=== PATIENT | female | born 1945 | race Caucasian/White ===

== ENCOUNTER 2018-04-24 10:36 | Outpatient (CLI) | payer MEDICARE, BC | END 2018-04-24 10:37 | disposition home or self-care (01) | LOC: BICMAMMO 10:36 | PROVIDERS: ATTEND Family Medicine | DX: Z12.31 Encounter for screening mammogram for malignant neoplasm of breast (principal); Z80.3 Family history of malignant neoplasm of breast | CPT/HCPCS: 77063; 77067 ==

== ENCOUNTER 2018-08-27 09:50 | Outpatient (CLI) | payer MEDICARE, OTHER ==
--- NOTE | 2018-08-27 11:45 | ULT ---
LIMITED RIGHT BREAST ULTRASOUND: 08/27/2018 PROVIDED CLINICAL HISTORY: Right breast palpable abnormality. FINDINGS: Limited sonographic interrogation of the right breast was performed in the region of palpable concern . There is a somewhat circumscribed area of altered echogenicity at the 10 o'clock position of the r ight breast, in the region of palpable concern. There is associated posterior shadowing. This proce ss measures approximately 3.4 x 1.8 cm. IMPRESSION: BI-RADS category 4-Suspicious abnormality. Ultrasound-guided breast biopsy is recommended. Results and recommendations discussed with the patient and questions answered. POS: OFF
== END 2018-08-27 09:51 | disposition home or self-care (01) ==
LOC: BICMAMMO 09:50
PROVIDERS: ATTEND Family Medicine
DX: N63.10 Unspecified lump in the right breast, unspecified quadrant (principal); Z80.3 Family history of malignant neoplasm of breast
CPT/HCPCS: 76642; 77065; G0279

== ENCOUNTER → 2018-09-05 | Day surgery (SDC) | payer MEDICARE, OTHER ==
--- NOTE | 2018-09-05 13:55 | ULT ---
ULTRASOUND GUIDED RIGHT BREAST BIOPSY: DATE: 09/05/2018. PROVIDED CLINICAL HISTORY: Mass. FINDINGS: Informed consent was obtained from the patient. The patient was placed on the sonography table in th e supine position and the previously described right breast mass was localized. The soft tissues ove rlying this region were prepped and draped in the usual sterile manner. Subsequently, the skin and s ubcutaneous tissues were infiltrated with 1% buffered Lidocaine. Continuous sonographic guidance was utilized to obtain 5 core samples of the mass. Sonographic guidance was utilized to deploy biopsy s ite marker within the mass. [place] were withdrawn. Hemostasis achieved. No immediate complication s. Post biopsy mammograms demonstrate appropriate clip deployment. IMPRESSION: Technically successful ultrasound-guided right breast biopsy. Please correlate with histology result s to follow. POS: OFF
== END ==
LOC: BICULT 12:45
PROVIDERS: ATTEND Family Medicine
PROC: 0HBT3ZX Excision of Right Breast, Percutaneous Approach, Diagnostic (ICD-10-PCS; principal; 2018-09-05)
DX: C50.411 Malignant neoplasm of upper-outer quadrant of right female breast (principal); Z17.0 Estrogen receptor positive status [ER+]
CPT/HCPCS: 19083; 88305; 88341; 88342; 88361

== ENCOUNTER 2018-09-12 14:50 | Outpatient (CLI) | payer MEDICARE, OTHER ==
--- NOTE | 2018-09-11 22:03 | HP ---
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 The patient on self-breast examination appreciated an outer right breast mass. Her family history is significant that her sister had breast cancer at approximately age 59. Otherwise, there is nobody else in her family with breast cancer. She is 2, para 2 with first at 20 years of age. She on 08/27/2018, had a mammogram that was nondiagnostic, did not reveal any abnormalities, but ultrasound on that day revealed a 3.4 x 1.8 cm right breast mass and on 09/05/2018, she underwent ultrasound-guided biopsy revealing the ER positive 98%, NV negative, Ki67 low, HER-2 negative, infiltrating lobular carcinoma. She discussed she was referred by Dr. Uday Ogden to see Dr. Craft. The patient desires breast preservation. Plan is for lymphoscintigraphy partial mastectomy as an outpatient. She will follow up with Dr. Craft, Dr. Goldberg, and myself as an outpatient. She understands risks of infection, bleeding, reoperation, and consents. Needle localization is not necessary as the lesion is palpable in the outer right breast. SOCIAL HISTORY: Tobacco, none since 1984. Alcohol, none. PAST SURGICAL HISTORY: Blepharoplasty, cataract. She is up to date on colonoscopies. PAST MEDICAL HISTORY: Arthritis, cholesterol, hypertension. MEDICATIONS: 1. Losartan. 2. Aspirin. 3. B12. REVIEW OF SYSTEMS: Ten-point noncontributory. FAMILY HISTORY: Otherwise noncontributory. PHYSICAL EXAMINATION: VITAL SIGNS: Blood pressure 134/71, pulse 67, temperature 96 degrees, weight 130 pounds. HEAD, EARS, EYES, NOSE, AND THROAT: Unremarkable. LUNGS: Clear to auscultation. CARDIAC: Regular rate and rhythm without murmur or gallop. ABDOMEN: Soft and nontender. BREASTS: Axilla without palpable lymphadenopathy. Left breast nipple-areolar normal, right nipple-areolar normal. Right breast reveals a 3 cm mobile mass, outer, slightly upper right breast. There are no skin changes. There was a puncture site consistent with a recent ultrasound-guided biopsy. EXTREMITIES: Unremarkable. No ankle edema. No lymphadenopathy. NEUROLOGIC: Neurologically intact. No deficit. ASSESSMENT AND PLAN: Right breast cancer outer, slightly upper 3.4 x 1.8 cm by ultrasound measurements with a negative mammogram. The self breast examination discovered ER positive 98%, NV negative, Ki67 low 8.5%, HER-2 negative, seen by Dr. Craft. Follow Dr. Ogden. PLAN: Treatment as above. She desires breast preservation. She understands risks of infection, bleeding, reoperation, wound problems, and consents. Job ID: [id number]
--- NOTE | 2018-09-12 15:26 | BD ---
DEXA BONE DENSITY EXAM: HISTORY: A 73-year-old postmenopausal female for screening. FINDINGS: Lumbar Spine: BMD (g/cm2) L1 1.016 T-Score: 0.2 L2 1.125 T-Score: 0.9 L3 1.243 T-Score: 1.4 L4 1.083 T-Score: 0.2 L1-L4 1.118 T-Score: 0.6 Femoral Neck: 0.678 T-Score: -1.5 Total Femur: 0.842 T-Score: -0.8 Impression: Osteopenia. This patient has a 10-year WHO fracture risk of a major osteoporotic fracture of 23% and of a hip fracture of 12%. POS: [facility]
== END 2018-09-12 14:51 | disposition home or self-care (01) ==
LOC: BICMAMMO 14:50
PROVIDERS: ATTEND Internal Medicine
DX: Z13.820 Encounter for screening for osteoporosis (principal); M85.859 Other specified disorders of bone density and structure, unspecified thigh; Z79.890 Hormone replacement therapy
CPT/HCPCS: 77080

== ENCOUNTER 2018-09-15 10:30 | Outpatient (CLI) | payer MEDICARE, OTHER ==
[2018-09-15 11:37] LABS: #Lymphocytes 0.9 thou/uL (1.20-3.40); #Monocytes 0.4 thou/uL (0.11-0.59); #Neutrophils 1.9 thou/uL (1.40-6.50); %Basophils 0.7 % (0.0-1.0); %Eosinophils 1.5 % (0.0-10.0); %Lymphocytes 27.5 % (21.0-51.0); %Monocytes 11.3 % (0.0-10.0); %Neutrophils 58.9 % (42.0-75.0); Hemoglobin 13.4 g/dL (12.0-16.0); Mean Corpuscular HGB CONC 32.5 g/dL (32.0-36.0); Mean Corpuscular Hemoglobin 32.8 pg (27.0-31.0); Platelet Count 198 thou/uL (130-400); RBC Distribution Width 11.4 % (11.5-14.5); Red Blood Cell (RBC) Count 4.08 mill/uL (4.20-5.40); White Blood Cell (WBC) Count 3.3 thou/uL (4.8-10.8)
[2018-09-15 12:01] LABS: ALT (SGPT) 12 U/L (8-55); AST (SGOT) 13 U/L (5-34); Albumin 4.5 g/dL (3.4-4.8); Alkaline Phosphatase 56 U/L (40-150); Anion Gap 11 mmol/L (10-20); BUN (Urea Nitrogen) 21 mg/dL (9.8-20.1); Bilirubin, Total 0.4 mg/dL (0.2-1.2); Calc. Creatinine Clearance 0 mL/min (70-130); Calcium 9.6 mg/dL (7.8-10.44); Carbon Dioxide 27 mmol/L (23-31); Chloride 105 mmol/L (98-107); Estimated GFR-MDRD 74; Globulin 2.6 g/dL (2.4-3.5); Glucose 97 mg/dL (83-110); Potassium 4.1 mmol/L (3.5-5.1); Protein, Total 7.1 g/dL (6.0-8.3); Sodium 139 mmol/L (136-145)
--- NOTE | 2018-09-15 13:49 | RAD ---
CHEST 2 VIEWS: HISTORY: Preop. COMPARISON: None. FINDINGS: Lungs are clear. No pneumothorax or effusion. Cardiac silhouette and mediastinal contour is within normal limits. IMPRESSION: No acute intrathoracic abnormality. POS: [facility]
== END 2018-09-15 10:31 | disposition home or self-care (01) ==
LOC: LABBT 10:30
PROVIDERS: ATTEND Specialist
DX: Z01.818 Encounter for other preprocedural examination (principal); C50.911 Malignant neoplasm of unspecified site of right female breast; Z17.0 Estrogen receptor positive status [ER+]
CPT/HCPCS: 71046; 80053; 85025; 93005; 93010

== ENCOUNTER 2018-09-17 06:57 | Day surgery (SDC) | payer MEDICARE, OTHER ==
[2018-09-15 10:49] VITALS: BMI 26.5
[2018-09-17] MEDS ORDERED: Ketorolac Tromethamine 30 MG/ML VIAL ONE (08:40)
--- NOTE | 2018-09-17 09:42 | NM ---
NUCLEAR MEDICINE LYMPHOSCINTIGRAPHY: History: Right breast cancer. FINDINGS: Examination was performed with injection of 417 mCi Technetium 99M filtered Sulfur-Colloid as four se parate injections around the nipple. The injections were performed after the patient was prepped in t he normal sterile fashion and local anesthesia obtained with 1% Xylocaine. Almost immediately an axil hernan node was identified. Patient was transferred to surgery. IMPRESSION: Successful lymphoscintigraphy. POS: [facility]
[2018-09-17] MEDS ORDERED: Fentanyl 100 MCG/2 ML VIAL ONE (11:17)
[2018-09-17] MEDS ORDERED: Lidocaine 2% PF 5 ML VIAL ONE ×2 (11:22→12:01)
[2018-09-17] MEDS ORDERED: Bupivacaine HCl 0.5%/Epinephrine 1:200,000/PF 30 ml Vial ONE (11:22)
[2018-09-17] MEDS ORDERED: Ondansetron PF 4 MG/2 ML Vial ONE (12:10)
[2018-09-17] MEDS ORDERED: Lidocaine 1% PF 5 ML VIAL ONE (12:10)
[2018-09-17] MEDS ORDERED: Dexamethasone 20 MG/5 ML VIAL ONE (12:10)
[2018-09-17] MEDS ORDERED: PROPOFOL 200 MG/20 ML VIAL ONE (12:10)
--- NOTE | 2018-09-17 14:38 | OP ---
DATE OF PROCEDURE: 09/17/2018 PREOPERATIVE DIAGNOSIS: Right breast cancer, upper outer quadrant, receptor-positive, nonpalpable nodes. POSTOPERATIVE DIAGNOSES: [place] node biopsy touch prep negative, nonpalpable lymphadenopathy. PROCEDURES PERFORMED: Partial mastectomy, upper outer right breast with sentinel node biopsy and Lymphazurin blue injection and lymphoscintigraphy, touch prep negative sentinel node, Neoprobe counts 250 sentinel node, excised bed 0 counts. ANESTHESIA: General, local 0.25% Marcaine with epinephrine 60 mL mixed with 2% Xylocaine 10 mL. DESCRIPTION OF PROCEDURE: The patient was taken to the operating room, where under general anesthesia, alcohol prep, areolar border, Lymphazurin blue injection 3 mL subdermal, areolar border, and right breast, axilla and chest wall prepared with ChloraPrep and draped in routine fashion. Incision was made in the right axilla at the lower hairline, this was carried down through skin, subcutaneous tissue, deep fascia, and sentinel node identified, colored blue, dissected free. Neoprobe counts 220. Excised using cautery, submitted to the pathologist, touch prep negative for metastasis or malignancy. Hemostasis gained with the cautery, Neoprobe counts in the excise bed 0. Subcutaneous tissue was approximated with 3-0 Monocryl, skin with subdermal 4-0 Monocryl, and local anesthetic infiltrated in the biopsy cavity for postoperative pain control and had been infiltrated in skin and subcutaneous tissue prior to the incision. Local anesthetic was infiltrated in the skin and subcutaneous tissue, and the planned remaining tissue outside the partial mastectomy, an incision made right periareolar laterally and carried down through skin and subcutaneous tissue and the tumor mass in the upper outer quadrant of right breast dissected free, creating a flap between the skin and subcutaneous tissue, and underlying breast tissue laterally superiorly and then underneath to the pectoralis muscle, dissecting this tumor mass with a partial mastectomy. Once it was completely excised, margins were marked with appropriate sutures and submitted to Pathology. Grossly, the tumor mass was palpated close to the posterior margin. Thus, the thin posterior margin of breast tissue excised from the pectoralis fascia, and serratus muscle and labeled appropriately with the suture on the new margin and submitted to Pathology. Hemostasis was gained with the cautery. Good hemostasis noted. Subcutaneous tissues were approximated with interrupted suture of 3-0 Monocryl, and skin with interrupted subdermal 4-0 Monocryl, and biopsy cavity was infiltrated with local anesthetic and Atwood-glue placed on the wounds and an Kaleb wrap. Hospital sports bra applied. The patient tolerated the procedure well. Job ID: [id number]
== END 2018-09-17 15:05 | disposition home or self-care (01) ==
LOC: SDC 06:57
PROVIDERS: ATTEND Specialist
PROC: 0HBT0ZZ Excision of Right Breast, Open Approach (ICD-10-PCS; principal; 2018-09-17)
PROC: 07B80ZX Excision of Right Internal Mammary Lymphatic, Open Approach, Diagnostic (ICD-10-PCS; 2018-09-17)
DX: C50.411 Malignant neoplasm of upper-outer quadrant of right female breast (principal); M19.90 Unspecified osteoarthritis, unspecified site; I10 Essential (primary) hypertension; Z17.0 Estrogen receptor positive status [ER+]; Z87.891 Personal history of nicotine dependence; Z79.82 Long term (current) use of aspirin; Z79.899 Other long term (current) drug therapy
CPT/HCPCS: 19301; 38525; 38900; 78195; A9541; Q9968; 88307; 88331; 88334; 88342; J0131; J0670; J1100; J1885; J2001; J2405; J2704; J3010

== ENCOUNTER 2019-06-09 09:21 | Outpatient (CLI) | payer MEDICARE, OTHER ==
--- NOTE | 2019-06-09 10:09 | MMO ---
Bilateral MAMMO Bilat Diag [facility]. CLINICAL HISTORY: Patient is 73 years old and is seen for diagnostic exam. VIEWS: The views performed were: . FILMS COMPARED: The present examination has been compared to prior imaging studies performed at [facility] on 04/24/2018 and 08/27/2018. This study has been interpreted with the assistance of computer-aided detection. MAMMOGRAM FINDINGS: Finding 1: Benign calcifications are noted bilaterally. Finding 2: There are post-operative and XRT changes in the right breast. IMPRESSION: FINDING 1: FINDINGS IN BOTH BREASTS ARE BENIGN. FINDING 2: FINDING IN THE RIGHT BREAST IS PROBABLY BENIGN. FOLLOW-UP IN 6 MONTHS IS RECOMMENDED. THE RESULTS OF THIS EXAM WERE SENT TO THE PATIENT. ACR BI-RADS Category 3 - Probably benign finding - short interval follow-up suggested. [facility] will notify the patient of the need for additional imaging services. MAMMOGRAPHY NOTE: 1. A negative mammogram report should not delay a biopsy if a dominant of clinically suspicious mass is present. 2. Approximately 10% to 15% of breast cancers are not detected by mammography. 3. Adenosis and dense breasts may obscure an underlying neoplasm. Reported by: MARSHALL PARRY MD Electonically Signed: [id number]
== END 2019-06-09 09:22 | disposition home or self-care (01) ==
LOC: BICMAMMO 09:21
PROVIDERS: ATTEND Internal Medicine Hematology & Oncology
DX: C50.919 Malignant neoplasm of unspecified site of unspecified female breast (principal)
CPT/HCPCS: 77066; G0279

== ENCOUNTER 2019-09-09 10:47 | Outpatient (CLI) | payer MEDICARE, OTHER ==
--- NOTE | 2019-09-09 12:48 | RAD ---
PA AND LATERAL CHEST: Date: 09/09/2019 COMPARISON: 09/15/18 exam. HISTORY: Bronchitis. Cough. FINDINGS: There are some patchy parenchymal lung changes of the right mid lung field, which have developed sinc e the prior examination. Left lung appears clear of any infiltrates. IMPRESSION: Some increased markings now seen in the right mid lung field suggesting some developing infiltrate, w hich on the lateral view appears to be within the anterior segment of the right upper lobe. POS: [facility]
== END 2019-09-09 10:48 | disposition home or self-care (01) ==
LOC: BICRAD 10:47
PROVIDERS: ATTEND Family Medicine
DX: J40 Bronchitis, not specified as acute or chronic (principal); J98.4 Other disorders of lung
CPT/HCPCS: 71046

== ENCOUNTER 2019-09-16 11:07 | Outpatient (CLI) | payer MEDICARE, OTHER ==
--- NOTE | 2019-09-16 12:01 | RAD ---
EXAM: Chest PA and lateral: HISTORY: Pneumonia, right lower lobe. COMPARISON: 09/09/2019 FINDINGS: Heart: Normal cardiac silhouette Aorta: Unremarkable Pulmonary vessels: Normal Costophrenic angles: Costophrenic angles are clear. Lungs: Improved aeration of the right lung. There is a persistent opacity in the left lung base. Mild hyperinflation. Pneumothorax: No pneumothorax Osseous structures: No osseous abnormalities IMPRESSION: 1. Improved aeration right lung. 2. Persistent left lower lobe opacity. Continued surveillance ensure resolution
== END 2019-09-16 11:08 | disposition home or self-care (01) ==
LOC: BICRAD 11:07
PROVIDERS: ATTEND Family Medicine
DX: J18.9 Pneumonia, unspecified organism (principal); R91.8 Other nonspecific abnormal finding of lung field
CPT/HCPCS: 71046

== ENCOUNTER 2019-11-30 09:24 | Outpatient (CLI) | payer MEDICARE, OTHER ==
--- NOTE | 2019-11-30 09:44 | MMO ---
Right Breast MAMMO Unilat Diag [facility]DI RT+CHRISTIAN. CLINICAL HISTORY: Patient is 74 years old and is seen for follow-up at short-interval from prior study. The patient has the following family history of breast cancer: sister. The patient has a history of malignant (generic) in the right breast in August,. The patient has a history of right Lumpectomy in August, - malignant. VIEWS: The views performed were: right craniocaudal with tomosynthesis; right mediolateral oblique with tomosynthesis; and right mediolateral with tomosynthesis. FILMS COMPARED: The present examination has been compared to prior imaging studies performed at [facility] on 04/24/2018, 08/27/2018 and 06/09/2019. This study has been interpreted with the assistance of computer-aided detection. MAMMOGRAM FINDINGS: The breast is extremely dense, which may lower the sensitivity of mammography. There is an area of skin thickening and a post operative change seen in the right breast. There are no suspicious masses, suspicious calcifications, or new areas of architectural distortion. IMPRESSION: THERE IS NO MAMMOGRAPHIC EVIDENCE OF MALIGNANCY. A ROUTINE FOLLOW-UP MAMMOGRAM IN 6 MONTHS IS RECOMMENDED. THE RESULTS OF THIS EXAM WERE SENT TO THE PATIENT. ACR BI-RADS Category 2 - Benign finding MAMMOGRAPHY NOTE: 1. A negative mammogram report should not delay a biopsy if a dominant of clinically suspicious mass is present. 2. Approximately 10% to 15% of breast cancers are not detected by mammography. 3. Adenosis and dense breasts may obscure an underlying neoplasm. Reported by: JOHN MCINTOSH MD Electonically Signed: [id number]
== END 2019-11-30 09:25 | disposition home or self-care (01) ==
LOC: BICMAMMO 09:24
PROVIDERS: ATTEND Internal Medicine Hematology & Oncology
DX: R92.8 Other abnormal and inconclusive findings on diagnostic imaging of breast (principal); C50.411 Malignant neoplasm of upper-outer quadrant of right female breast
CPT/HCPCS: 77065; G0279

== ENCOUNTER 2020-06-10 09:16 | Outpatient (CLI) | payer MEDICARE, OTHER ==
--- NOTE | 2020-06-10 09:49 | MMO ---
Bilateral MAMMO Bilat Diag [facility]. CLINICAL HISTORY: Patient is 74 years old and is seen for diagnostic exam. The patient has the following family history of breast cancer: sister. The patient has a history of malignant (generic) in the right breast in August,. The patient has a history of right Lumpectomy in August, - malignant. VIEWS: The views performed were: bilateral craniocaudal with tomosynthesis; bilateral mediolateral oblique with tomosynthesis; and bilateral mediolateral with tomosynthesis. FILMS COMPARED: The present examination has been compared to prior imaging studies performed at [facility] on 04/24/2018, 08/27/2018, 06/09/2019 and 11/30/2019. This study has been interpreted with the assistance of computer-aided detection. MAMMOGRAM FINDINGS: The breasts are extremely dense, which may lower the sensitivity of mammography. There are benign appearing calcifications seen in both breasts. Post op changes right breast. There are no suspicious masses, suspicious calcifications, or new areas of architectural distortion. IMPRESSION: THERE IS NO MAMMOGRAPHIC EVIDENCE OF MALIGNANCY. A ROUTINE FOLLOW-UP MAMMOGRAM IN 1 YEAR IS RECOMMENDED. THE RESULTS OF THIS EXAM WERE SENT TO THE PATIENT. ACR BI-RADS Category 2 - Benign finding MAMMOGRAPHY NOTE: 1. A negative mammogram report should not delay a biopsy if a dominant of clinically suspicious mass is present. 2. Approximately 10% to 15% of breast cancers are not detected by mammography. 3. Adenosis and dense breasts may obscure an underlying neoplasm. Reported by: FABY HOLBROOK MD Electonically Signed: [id number]
== END 2020-06-10 09:17 | disposition home or self-care (01) ==
LOC: BICMAMMO 09:16
PROVIDERS: ATTEND Internal Medicine Hematology & Oncology
DX: C50.411 Malignant neoplasm of upper-outer quadrant of right female breast (principal)
CPT/HCPCS: 77066; G0279

== ENCOUNTER 2020-07-18 09:48 | Outpatient (CLI) | payer MEDICARE, OTHER ==
--- NOTE | 2020-07-18 10:26 | BD ---
DEXA BONE DENSITY STUDY: Date: 07/18/2020 HISTORY: Osteoporosis screening. COMPARISON: Bone mineral density exam from 2019. FINDINGS: Lumbar Spine: BMD (g/cm2) L1 1.092 T-Score: 0.9 Z-Score: 3.1 L2 1.250 T-Score: 2.0 Z-Score: 4.4 L3 1.322 T-Score: 2.2 Z-Score: 4.7 L4 1.167 T-Score: 1.0 Z-Score: 3.6 L1-L4 1.204 T-Score: 1.4 Z-Score: 3.9 Change from comparison is +7.7%, statistically significant. Left Femoral Neck: 0.700 T-Score: -1.3 Z-Score: 0.8 Total Left Hip: 0.883 T-Score: -0.5 Z-Score: 1.4 Changes from comparison is +4.9%. 10 YEAR FRACTURE RISK: Major osteoporotic fracture: 23% Hip fracture: 13% WHO Classification: Osteopenia. IMPRESSION: Osteopenia with fracture risk as above. POS: [facility]
== END 2020-07-18 09:49 | disposition home or self-care (01) ==
LOC: BICMAMMO 09:48
PROVIDERS: ATTEND Internal Medicine Hematology & Oncology
DX: Z13.820 Encounter for screening for osteoporosis (principal); T38.6X5A Adverse effect of antigonadotrophins, antiestrogens, antiandrogens, not elsewhere classified, initial encounter; M85.852 Other specified disorders of bone density and structure, left thigh; Z78.0 Asymptomatic menopausal state
CPT/HCPCS: 77080

== ENCOUNTER 2021-06-14 09:31 | Outpatient (CLI) | payer MEDICARE | END 2021-06-14 09:32 | disposition home or self-care (01) | LOC: BICMAMMO 09:31 | PROVIDERS: ATTEND Internal Medicine Hematology & Oncology | DX: C50.411 Malignant neoplasm of upper-outer quadrant of right female breast (principal) | CPT/HCPCS: 77066; G0279 ==

== ENCOUNTER 2021-08-01 14:15 | Outpatient (CLI) | payer MEDICARE, OTHER | END 2021-08-01 14:16 | disposition home or self-care (01) | LOC: BICMAMMO 14:15 | PROVIDERS: ATTEND Internal Medicine Hematology & Oncology | DX: Z13.820 Encounter for screening for osteoporosis (principal); T38.6X5A Adverse effect of antigonadotrophins, antiestrogens, antiandrogens, not elsewhere classified, initial encounter; C50.411 Malignant neoplasm of upper-outer quadrant of right female breast; M85.852 Other specified disorders of bone density and structure, left thigh; M85.851 Other specified disorders of bone density and structure, right thigh | CPT/HCPCS: 77080 ==

== ENCOUNTER 2022-05-20 13:38 | Emergency (ER) | payer MEDICARE, OTHER | END 2022-05-20 16:45 | disposition home or self-care (01) | LOC: ERS 13:38 | DX: S52.502A Unspecified fracture of the lower end of left radius, initial encounter for closed fracture (principal); I10 Essential (primary) hypertension; W18.30XA Fall on same level, unspecified, initial encounter; Z79.899 Other long term (current) drug therapy | CPT/HCPCS: 29125; 70450; 70486; 72125 ==

== ENCOUNTER 2022-08-02 08:30 | Outpatient (CLI) | payer MEDICARE, OTHER | END 2022-08-02 08:31 | disposition home or self-care (01) | LOC: BICMAMMO 08:30 | PROVIDERS: ATTEND Internal Medicine Hematology & Oncology | DX: M85.852 Other specified disorders of bone density and structure, left thigh (principal); M85.851 Other specified disorders of bone density and structure, right thigh | CPT/HCPCS: 77080 ==

== ENCOUNTER 2022-11-19 08:05 | Outpatient (CLI) | payer MEDICARE, OTHER ==
[2022-11-19] MEDS ORDERED: Iopamidol 370 76% 100 ML VIAL ONE (09:07)
== END 2022-11-19 08:06 | disposition home or self-care (01) ==
LOC: BICCT 08:05 → CT 08:06
PROVIDERS: ATTEND Nurse Practitioner Family
DX: R91.1 Solitary pulmonary nodule (principal); S22.41XD Multiple fractures of ribs, right side, subsequent encounter for fracture with routine healing; J98.4 Other disorders of lung
CPT/HCPCS: 71270; 82565; Q9967

== ENCOUNTER 2023-06-20 09:00 | Outpatient (CLI) | payer MEDICARE, OTHER | END 2023-06-20 09:01 | disposition home or self-care (01) | LOC: BICMAMMO 09:00 | PROVIDERS: ATTEND Internal Medicine Hematology & Oncology | DX: Z08 Encounter for follow-up examination after completed treatment for malignant neoplasm (principal); Z85.3 Personal history of malignant neoplasm of breast | CPT/HCPCS: 77066; G0279 ==

== ENCOUNTER 2023-09-20 08:42 | Outpatient (CLI) | payer MEDICARE, OTHER | END 2023-09-20 08:43 | disposition home or self-care (01) | LOC: BICMAMMO 08:42 | PROVIDERS: ATTEND Internal Medicine Hematology & Oncology | DX: Z13.820 Encounter for screening for osteoporosis (principal); C50.411 Malignant neoplasm of upper-outer quadrant of right female breast; T38.6X5A Adverse effect of antigonadotrophins, antiestrogens, antiandrogens, not elsewhere classified, initial encounter; M85.851 Other specified disorders of bone density and structure, right thigh; M85.852 Other specified disorders of bone density and structure, left thigh | CPT/HCPCS: 77080 ==

== ENCOUNTER 2024-06-24 08:51 | Outpatient (CLI) | payer MEDICARE, OTHER | END 2024-06-24 08:52 | disposition home or self-care (01) | LOC: BICMAMMO 08:51 | PROVIDERS: ATTEND Internal Medicine Hematology & Oncology | DX: C50.411 Malignant neoplasm of upper-outer quadrant of right female breast (principal); T38.6X5A Adverse effect of antigonadotrophins, antiestrogens, antiandrogens, not elsewhere classified, initial encounter | CPT/HCPCS: 77066; G0279 ==

== ENCOUNTER 2025-03-16 10:52 | Outpatient (CLI) | payer MEDICARE, OTHER | END 2025-03-16 10:53 | disposition home or self-care (01) | LOC: BICRAD 10:52 | PROVIDERS: ATTEND Family Medicine | DX: M25.512 Pain in left shoulder (principal); M25.511 Pain in right shoulder ==